=== PATIENT | female | born 1985 | race Caucasian/White ===

== ENCOUNTER 2017-07-23 18:04 | Emergency (ER) | payer BC ==
[2017-07-23] MEDS ORDERED: Acyclovir* 200 MG CAP PO ONE (18:24)
[2017-07-23 18:29] VITALS: BP 117/70
[2017-07-23] MEDS ORDERED: oxyCODONE/Acetamin 5/325 MG* TAB PO ONE (18:29)
--- NOTE | 2017-07-23 18:32 | UC ---
Skin Complaint HPI - HPI Summary HPI Summary: red erythemic rash, starting to blister, has been present for 2 days. - History of Current Complaint Chief Complaint: UCSkin Time Seen by Provider: 07/23/17 18:19 Stated Complaint: SKIN COMPLAINT Hx Obtained From: Patient Hx Last Menstrual Period: 07/08/17 ?: No Onset/Duration: Sudden Onset, Lasting Days Skin Exposure Onset/Duration: Days Ago Timing: Constant Onset Severity: Mild Current Severity: Moderate - Allergy/Home Medications Allergies/Adverse Reactions: Allergies Allergy/AdvReac Type Severity Reaction Status Date / Time Amoxicillin Allergy Mild Vomiting Verified 07/23/17 18:14 Penicillins Allergy Vomiting Verified 07/23/17 18:14 Review of Systems Constitutional: Negative Skin: Rash Eyes: Negative ENT: Negative Respiratory: Negative Cardiovascular: Negative Gastrointestinal: Negative Genitourinary: Negative Motor: Negative Neurovascular: Negative Musculoskeletal: Negative Neurological: Negative Psychological: Negative Is Patient Immunocompromised?: No All Other Systems Reviewed And Are Negative: Yes PMH/Surg Hx/FS Hx/Imm Hx Previously Healthy: Yes - Surgical History Surgical History: Yes Surgery Procedure, Year, and Place: LEFT KNEE SURGERY 2002. CORRECTIVE LAZER EYE SURGERY 2014 - Family History Known Family History: Negative: Hypertension - Social History Alcohol Use: Occasionally Substance Use Type: None Smoking Status (MU): Never Smoked Tobacco - Immunization History Most Recent Tetanus Shot: unknown Physical Exam Triage Information Reviewed: Yes Appearance: Well-Appearing, Well-Nourished, Pain Distress Vital Signs: Initial Vital Signs Temp 98.0 F 07/23/17 18:11 Pulse 66 07/23/17 18:11 Resp 14 07/23/17 18:11 BP 117/70 07/23/17 18:11 Pulse Ox 100 07/23/17 18:11 Vital Signs Reviewed: Yes Eye Exam: Normal ENT Exam: Normal Dental Exam: Normal Neck exam: Normal Respiratory Exam: Normal Respiratory: Positive: Chest non-tender, Lungs clear, Normal breath sounds Cardiovascular Exam: Normal Cardiovascular: Positive: RRR, No Murmur, Pulses Normal Abdominal Exam: Normal Abdomen Description: Positive: Nontender, No Organomegaly, Soft Bowel Sounds: Positive: Present Musculoskeletal Exam: Normal Neurological Exam: Normal Neurological: Positive: Alert, Muscle Tone Normal Psychological Exam: Normal Skin: Positive: rashes - rash wraps around the left rib cage, shingles in appearecne Course/Dx - Course Course Of Treatment: hx obtained, exam performed, meds reviewed, treated for shingles - Differential Diagnoses - Skin Complaint Differential Diagnoses: Contact Dermatitis, Varicella Zoster - Diagnoses Provider Diagnoses: shingles Discharge - Discharge Plan Condition: Stable Disposition: HOME Prescriptions: ValACYclovir (*) [Valtrex 1 GM(*)] 1 gm PO TID #21 tab Patient Education Materials: Shingles (ED) Referrals: Cora Rbob MD [Primary Care Provider] - Additional Instructions: 1. keep the area cool and dry 2. take the medication as prescribed. 3. follow up with any worsening symptoms.
[2017-07-23] MEDS ORDERED: HYDROcodone/ACETAMIN 5-325 MG* 1 TAB PO ONE (18:34)
== END 2017-07-23 18:46 | disposition home or self-care (01) ==
LOC: UCCORT 18:04
DX: B02.9 Zoster without complications (principal); Z88.0 Allergy status to penicillin
CPT/HCPCS: 99212; A9270-GY; G0463

== ENCOUNTER 2018-04-18 03:19 | Inpatient (IN) | payer OTHER ==
[2018-04-18] MEDS ORDERED: Promethazine INJ(RESTRICTED)* 25 MG/ML 1 ML VIAL IV PRN (04:37)
--- NOTE | 2018-04-18 04:44 | HP ---
General Information - Reason for Visit Patient with a twin at 33 4/7 weeks EGA, Presents with complaints of ruptured membranes at 2 am today. - General Information Maternal Age: 33 Grav: 1 Para: 0 SAB: 0 IEA: 0 Estimated Due Date: 06/02/18 Determined By: LMP - confirmed with early ultrasound Gestational Age in Weeks/Days: 33 4/7 Maternal Blood Type and Rh: O Positive - Results this Serology/RPR Result: Non-Reactive Rubella Result: Immune HBsAg Result: Negative HIV Result: Negative Past Medical History Delivery History: See Records - Primigravida Pertinent Past Medical History: See Records Pertinent Past Surgical History: See Records Pertinent Family History: See Records - Antepartal Records Antepartal Records: Reviewed, Complicated by: - Twin dichorionic/diamniotic, gestational diabetes A1 Review of Systems Constitutional: Comfortable CV Complaint: No Respiratory: Shortness of Breath: No Gastrointestinal: No Nausea/Vomiting, Normal Bowel Movement Genitourinary: Leaking Fluid, No Dysuria, No Bleeding Musculoskeletal: No Complaint, No Epigastric Pain Neurological: No Headache, No Visual Changes Movement: Normal Exam Allergies/Adverse Reactions: Allergies MS Penicillins [Penicillins] Allergy (Mild, Verified 04/13/18 12:01) Vomiting MS Amoxicillin [Amoxicillin] Adverse Reaction (Mild, Verified 04/18/18 04:43) Vomiting Temp 97.8 BP 137/85 P 91 RR 18 Pox 98 % RA - Measurements Height: 5 ft 8 in Weight: 185 lb Weight in lbs: 185.181947 Body Mass Index (BMI): 28.1 Pre- Weight: 155 lb Weight Gained This : 30 lbs and 0 ozs - Exam Breast: Breast Exam Deferred CVA: No CVA Tenderness Extremities: No Edema Heart: Normal Rhythm/Heart Sounds HEENT: No Significant Findings Lungs: Clear Bilaterally Rectal: Rectal Exam Deferred Reflexes: DTR 2+ Thyroid: No Thyromegaly - Abdominal Exam Abdomen Exam: Non-Tender - Ultrasound/Biophysical Profile Ultrasound Status: Not Done Biophysical Profile: Normal Reactive NST Targeted Exam Findings See L&D Outpatient Visit Provider Note for Findings: N/A Cervical Exam: 4cm Effacement: 80% Station: 0 Presenting Part: Vertex - Vertex/vertex Membrane Status: SROM - clear fluid, grossly ruptured. Amniotic Fluid Evaluation: Gross Rupture, Clear Bleeding/Discharge: None EFM Findings - External Monitor Findings Baseline Heart Rate: 140 External Monitor Findings: Accelerations Present - Baby A 140's, Baby B 130's both Category 1 tracing. Contractions: Regular, Mild, < 45 Seconds Assessment/Plan - Assessment Twin vertex/vertex presentation gross ruptured membranes in labor at 33 4/7 weeks. - Obstetrical Risk Factors Obstetrical Risk Factors: GBS Unknown, - Twins - Plan Plan: IV Hydration, Antibiotic Prophylaxis, Admit - Anticipate Vaginal Delivery - Date/Time of Admission Date of Admission: 04/18/18 Time of Admission: 04:50
[2018-04-18 04:45] LABS: ABS Basophils 0 10^3/ul (0-0.2); ABS Eosinophils 0.2 10^3/ul (0-0.6); ABS Lymphocytes 2.3 10^3/ul (1.0-4.8); ABS Monocytes 0.7 10^3/ul (0-0.8); ABS Neutrophils 7.6 10^3/ul (1.5-7.7); ABS Nucleated RBC 0 10^3/ul; Eosinophil % 2.3 % (0-6); Hematocrit 40 % (35-47); Hemoglobin 13.4 g/dl (12.0-16.0); Lymphocyte % 20.8 % (25-47); Mean Corpuscular HGB Conc 34 g/dl (31-36); Mean Corpuscular Hemoglobin 26 pg (27-31); Mean Corpuscular Volume 77 fL (80-97); Mean Platelet Volume 9.3 um3 (7.4-10.4); Nucleated Red Blood Cells % 0.1; Platelet Count 180 10^3/ul (150-450); Red Blood Count 5.14 10^6/ul (4.00-5.40); Red Cell Distribution Width 14 % (10.5-15); White Blood Count 10.9 10^3/ul (3.5-10.8)
[2018-04-18] MEDS ORDERED: Ampicillin IV* 2 GM in NS 0.9% 100 ML* 100 ML IVPB SCH (05:00)
[2018-04-18] MEDS ORDERED: Nalbuphine* 10 MG/ML 1 ML VIAL IV PRN (05:25)
[2018-04-18] MEDS ORDERED: Nalbuphine* 10 MG/ML 1 ML VIAL ONE (05:38)
[2018-04-18] MEDS ORDERED: OBEPIDURAL* 250 ML EPIDURAL ONE (08:36)
[2018-04-18] MEDS ORDERED: Phenylephrine IV* 40 MCG/ML 10 ML SYRINGE ONE (09:18)
[2018-04-18] MEDS ORDERED: Phenylephrine IV* 40 MCG/ML 10 ML SYRINGE IV PUSH PRN ×2 (09:31)
[2018-04-18] MEDS ORDERED: Sodium Citrate/Citric Acid* 15 ML UDC PO PRN (09:31)
[2018-04-18] MEDS ORDERED: OBEPIDURAL* 250 ML EPIDURAL SCH (10:00)
[2018-04-18 10:12] LABS: Urine Appearance Clear; Urine Blood 1+ (Negative); Urine Color Yellow; Urine Ketones 1+ (Negative); Urine Protein Negative (Negative); Urine Red Blood Cell Trace(0-2/hpf) (Absent); Urine Specific Gravity 1.013 (1.010-1.030); Urine Urobilinogen Negative (Negative); Urine White Blood Cell Absent (Absent)
--- NOTE | 2018-04-18 10:21 | PN ---
Progress Note - Progress Note Date of Service: 04/18/18 SOAP: Subjective: [Patient in labor s/p epidural with good pain relief.] Objective: [ heart tones Cat 1, contractions q2-3 minutes spontaneous. Cervix 7-8cm dilated/80-90% effaced? 0 station] Assessment: [Twin PROM and PTL] Plan: [Continue current care, expect .]
[2018-04-18] MEDS ORDERED: Lidocaine 2% PF* 10 ML AMP ONE (11:43)
[2018-04-18] MEDS ORDERED: Ondansetron INJ* 2 MG/ML VIAL IV PRN (13:43)
[2018-04-18] MEDS ORDERED: Acetaminophen TAB* 325 MG PO PRN (13:43)
[2018-04-18] MEDS ORDERED: OXYTOCIN* 10 UNITS/ML 1 ML VIAL ONE (13:48)
[2018-04-18] MEDS ORDERED: Dibucaine 1% 28.35 GM TUBE PR PRN (14:05)
[2018-04-18] MEDS ORDERED: Glycerin ADULT SUPP PR PRN (14:05)
[2018-04-18] MEDS ORDERED: Witch Hazel PAD* JAR TOPICAL PRN (14:05)
--- NOTE | 2018-04-18 14:13 | PROCNOTE ---
[facility] OB: Delivery Note - Delivery A Date of : 04/18/18 [place] Sex: Male Weight at : 4 lb Score 1 Minute: 9 Score 5 Minutes: 9 Gestational Age in Weeks and Days at Delivery: 33 Weeks and 4 Days Delivery Method: Spontaneous Vaginal Labor: Spontaneous Amniotic Fluid: Clear Estimated Blood Loss: 0 Anesthesia/Analgesia: CEI for Labor Delivered By: Naren Wing - Nursery Level of Nursery: NICU - Twin A delivery - Perineum Perineal Repair: None - Events Delivery Events of Note: Partial Course of Antibiotics
--- NOTE | 2018-04-18 14:16 | PROCNOTE ---
[facility] OB: Delivery Note - Delivery A Date of : 04/18/18 Gestational Age in Weeks and Days at Delivery: 33 Weeks and 4 Days Delivery Method: Spontaneous Vaginal Labor: Spontaneous Amniotic Fluid: Clear Estimated Blood Loss: 0 Anesthesia/Analgesia: CEI for Labor Delivered By: Nraen Wing B Date of : 04/18/18 [place] Sex: Male Weight at : 4 lb 9 oz Score 1 Minute: 8 Score 5 Minutes: 8 Gestational Age in Weeks and Days at Delivery: 33 Weeks and 4 Days Delivery Method: Spontaneous Vaginal Labor: Spontaneous Amniotic Fluid: Clear Anesthesia/Analgesia: CEI for Labor Delivered By: Naren Wing - Nursery Level of Nursery: NICU - Twin B delivery - Perineum Perineal Injury: Midline Episiotomy Perineal Repair: By Delivering Practioner - Events Delivery Events of Note: Partial Course of Antibiotics, Post- Bleeding - Meds Given - cytotec 800mcg ME x 1 dose - Risk for Falls Delivered OB Patient- Risk for Falls: Heavy Bleeding - 700cc Fall Risk: Patient is at High Risk for Falls
[2018-04-18] MEDS: Ibuprofen TAB* 600 MG PO PRN ×2 (15:32→21:55)
[2018-04-18] MEDS ORDERED: Misoprostol TAB* 200 MCG ONE (15:55)
[2018-04-18] MEDS ORDERED: Simethicone TAB* 80 MG TAB.CHEW PO SCH (17:30)
[2018-04-18] MEDS: Docusate CAP* 100 MG PO SCH (21:55)
[2018-04-19] MEDS: Acetaminophen TAB* 325 MG PO PRN ×2 (00:04→18:34)
[2018-04-19 06:20] LABS: ABS Basophils 0.1 10^3/ul (0-0.2); ABS Eosinophils 0.2 10^3/ul (0-0.6); ABS Lymphocytes 2.4 10^3/ul (1.0-4.8); ABS Monocytes 1.3 10^3/ul (0-0.8); ABS Neutrophils 12.1 10^3/ul (1.5-7.7); ABS Nucleated RBC 0 10^3/ul; Hematocrit 36 % (35-47); Hemoglobin 11.8 g/dl (12.0-16.0); Lymphocyte % 15.3 % (25-47); Mean Corpuscular HGB Conc 33 g/dl (31-36); Mean Corpuscular Hemoglobin 26 pg (27-31); Mean Corpuscular Volume 79 fL (80-97); Nucleated Red Blood Cells % 0.1; Platelet Count 178 10^3/ul (150-450); Red Blood Count 4.53 10^6/ul (4.00-5.40); Red Cell Distribution Width 14 % (10.5-15)
[2018-04-19] MEDS ORDERED: Ferrous Gluconate TAB* 324 MG TAB PO SCH (09:00)
[2018-04-19] MEDS: Docusate CAP* 100 MG PO SCH ×2 (09:31→19:48)
[2018-04-20 07:30] VITALS: BP 121/73
[2018-04-20] MEDS: Docusate CAP* 100 MG PO SCH ×2 (08:56→15:03)
[2018-04-20] MEDS: Ibuprofen TAB* 600 MG PO PRN (16:52)
== END 2018-04-20 18:00 | disposition home or self-care (01) | DRG 774 ==
LOC: MCHOBOUT 03:19 → MCHOB 04:03
PROVIDERS: ADMIT Obstetrics & Gynecology; ATTEND Obstetrics & Gynecology
PROC: 10E0XZZ Delivery of Products of Conception, External Approach (ICD-10-PCS; principal; 2018-04-18)
PROC: 10907ZC Drainage of Amniotic Fluid, Therapeutic from Products of Conception, Via Natural or Artificial Opening (ICD-10-PCS; 2018-04-18)
PROC: 4A1HXCZ Monitoring of Products of Conception, Cardiac Rate, External Approach (ICD-10-PCS; 2018-04-18)
PROC: 0W8NXZZ Division of Female Perineum, External Approach (ICD-10-PCS; 2018-04-18)
DX: O60.14X2 Preterm labor third trimester with preterm delivery third trimester, fetus 2 (principal); O72.1 Other immediate postpartum hemorrhage; O60.14X1 Preterm labor third trimester with preterm delivery third trimester, fetus 1; Z37.2 Twins, both liveborn; Z3A.33 33 weeks gestation of pregnancy; O42.013 Preterm premature rupture of membranes, onset of labor within 24 hours of rupture, third trimester; O24.420 Gestational diabetes mellitus in childbirth, diet controlled; O34.13 Maternal care for benign tumor of corpus uteri, third trimester; D25.9 Leiomyoma of uterus, unspecified; O30.043 Twin pregnancy, dichorionic/diamniotic, third trimester; Z88.0 Allergy status to penicillin
CPT/HCPCS: 36415; 81003; 81015; 85025; 86850; 86900; 86901; 87070; 87077; 87186; A9270-GY; J0290; J2001; J2300; J2550; J2590

== ENCOUNTER 2018-12-01 13:56 | Emergency (ER) | payer OTHER ==
--- NOTE | 2018-12-01 14:43 | UC ---
Respiratory Complaint HPI - HPI Summary HPI Summary: breast feeding parent of twin 8 mth olds----sudden onset of congestion chills sore throat yesterday that has now resolved no fevers--her and the boys did get a flu vaccine one of the children have similar symptoms - History of Current Complaint Chief Complaint: UCRespiratory Stated Complaint: RESP ISSUE Time Seen by Provider: 12/01/18 14:34 Hx Obtained From: Patient Hx Last Menstrual Period: 07/08/17 ?: No Onset/Duration: Sudden Onset, Lasting Days - 1 Timing: Constant Severity Initially: Mild Severity Currently: Mild Character: Cough: Nonproductive Aggravating Factors: Nothing Alleviating Factors: Nothing Associated Signs And Symptoms: Positive: URI, Nasal Congestion - Allergies/Home Medications Allergies/Adverse Reactions: Allergies Allergy/AdvReac Type Severity Reaction Status Date / Time amoxicillin Allergy Mild See Comment Verified 04/18/18 05:28 Penicillins Allergy Mild See Comment Verified 04/18/18 05:31 PMH/Surg Hx/FS Hx/Imm Hx Previously Healthy: Yes - Surgical History Surgical History: Yes Surgery Procedure, Year, and Place: LEFT KNEE SURGERY 2002. CORRECTIVE LAZER EYE SURGERY 2014 - Family History Known Family History: Negative: Hypertension - Social History Occupation: Employed Full-time Lives: With Family Alcohol Use: None Substance Use Type: None Smoking Status (MU): Never Smoked Tobacco Have You Smoked in the Last Year: No - Immunization History Most Recent Influenza Vaccination: 2016 Most Recent Tetanus Shot: unknown Most Recent Pneumonia Vaccination: never Review of Systems All Other Systems Reviewed And Are Negative: Yes Constitutional: Positive: Negative Skin: Positive: Negative Eyes: Positive: Negative ENT: Positive: Sore Throat, Nasal Discharge, Sinus Congestion Respiratory: Positive: Cough Cardiovascular: Positive: Negative Gastrointestinal: Positive: Negative Genitourinary: Positive: Negative Motor: Positive: Negative Neurovascular: Positive: Negative Musculoskeletal: Positive: Negative Neurological: Positive: Negative Psychological: Positive: Negative Is Patient Immunocompromised?: No Physical Exam Triage Information Reviewed: Yes Appearance: Well-Appearing, No Pain Distress, Well-Nourished Vital Signs Reviewed: Yes Eye Exam: Normal Eyes: Positive: Conjunctiva Clear ENT Exam: Normal ENT: Positive: Normal ENT inspection, Hearing grossly normal, Pharynx normal, Nasal congestion, Nasal drainage, TMs normal, Sinus tenderness, Uvula midline. Negative: Trismus, Muffled voice, Hoarse voice, Dental tenderness Dental Exam: Normal Neck exam: Normal Neck: Positive: Supple, Nontender, No Lymphadenopathy Respiratory Exam: Normal Respiratory: Positive: Chest non-tender, Lungs clear, Normal breath sounds, No respiratory distress Cardiovascular Exam: Normal Cardiovascular: Positive: RRR, No Murmur, Pulses Normal, Brisk Capillary Refill Musculoskeletal Exam: Normal Musculoskeletal: Positive: Strength Intact, ROM Intact, No Edema Neurological Exam: Normal Neurological: Positive: Alert, Muscle Tone Normal Psychological Exam: Normal Skin Exam: Normal Respiratory Course/Dx - Course Course Of Treatment: influenza testing negative, increase fluids, tylenol, ibuprofen for pain nasal saline for nose and sinus congestion increase fluids follow with pcp prn - Differential Dx/Diagnosis Provider Diagnosis: URI (upper respiratory infection) Discharge - Sign-Out/Discharge Documenting (check all that apply): Patient Departure All imaging exams completed and their final reports reviewed: No Studies - Discharge Plan Condition: Stable Disposition: HOME Patient Education Materials: Sodium Chloride (Into the nose), Upper Respiratory Infection (ED), Viral Syndrome (ED) Referrals: Cora Robb MD [Primary Care Provider] - If Needed - Billing Disposition and Condition Condition: STABLE Disposition: Home
[2018-12-01 14:44] VITALS: BP 112/65
[2018-12-01 15:10] LABS: Influenza A Molecular NEGATIVE (Negative); Influenza B Molecular NEGATIVE (Negative)
== END 2018-12-01 15:30 | disposition home or self-care (01) ==
LOC: UCEAST 13:56
DX: J06.9 Acute upper respiratory infection, unspecified (principal); Z88.0 Allergy status to penicillin
CPT/HCPCS: 99211; G0463

== ENCOUNTER 2022-06-30 09:00 | Inpatient (IN) ==
[2022-06-30] MEDS ORDERED: Buffered Lidocaine 1% SYRIN 1 ml INTRADERM ONE (09:56)
[2022-06-30] MEDS ORDERED: Lactated Ringers 1000 ml BAG 1,000 ML IV ONE ×2 (09:56→15:20)
[2022-06-30] MEDS ORDERED: Promethazine INJ(RESTRICTED) 25 MG/ML 1 ml VIAL IV PRN (09:56)
[2022-06-30] MEDS ORDERED: Nalbuphine 10 MG/ML 1 ML VIAL IV PRN (09:56)
[2022-06-30] MEDS ORDERED: Lactated Ringers 1000 ml BAG 1,000 ML IV SCH ×3 (10:00→18:00)
[2022-06-30] MEDS ORDERED: ceFAZolin 2 GM in NS PREMIX 2 GM/100 ML BAG IVPB ONE (10:11)
[2022-06-30 10:57] LABS: ABS Basophils 0.1 10^3/ul (0-0.2); ABS Eosinophils 0.3 10^3/ul (0-0.6); ABS Lymphocytes 1.8 10^3/ul (1.0-4.8); ABS Monocytes 1.2 10^3/ul (0-0.8); ABS Neutrophils 9.2 10^3/ul (1.5-7.7); Eosinophil % 2.4 %; Hematocrit 39 % (35-47); Hemoglobin 12.9 g/dL (12.0-16.0); Lymphocyte % 14.5 %; Mean Corpuscular HGB Conc 33 g/dL (31-36); Mean Corpuscular Hemoglobin 25 pg (27-31); Mean Corpuscular Volume 77 fL (80-97); Mean Platelet Volume 8.9 fL (7.4-10.4); Nucleated Red Blood Cells % 0.2; Platelet Count 244 10^3/uL (150-450); Red Blood Count 5.07 10^6 /uL (3.70-4.87); Red Cell Distribution Width 14 % (10-15); White Blood Count 12.7 10^3/uL (3.5-10.8)
[2022-06-30 11:29] LABS: Urine Benzodiazepine Screen None Detected (None Detect); Urine Cannabinoids Screen None Detected (None Detect); Urine Opiates Screen None Detected (None Detect)
[2022-06-30] MEDS ORDERED: Oxytocin in LR 20,000 MILLI.UNIT/1,000 ML BAG IV SCH (11:30)
[2022-06-30] MEDS ORDERED: EPINEPHrine SULFITE FREE 1 MG/ML ONE (14:22)
[2022-06-30] MEDS ORDERED: Lidocaine 1% VIAL 10 MG/ML VIAL 30 ML ONE ×2 (14:23→17:52)
[2022-06-30] MEDS ORDERED: OBEPIDURAL (200 ML) 200 ML EPIDURAL ONE (14:23)
[2022-06-30] MEDS ORDERED: Phenylephrine 40 mcg/mL 10mL (400mcg) SYRINGE IV PUSH PRN (15:20)
[2022-06-30] MEDS ORDERED: Sodium Citrate/Citric Acid LIQ 15 ML UDC PO PRN (15:20)
[2022-06-30] MEDS ORDERED: OBEPIDURAL (200 ML) 200 ML EPIDURAL SCH (16:00)
[2022-06-30 16:30] LABS: Urine Appearance Clear; Urine Bilirubin Negative (Negative); Urine Blood Negative (Negative); Urine Color Straw; Urine Glucose Negative (Negative); Urine Ketones 1+ (Negative); Urine Nitrite Negative (Negative); Urine Protein Negative (Negative); Urine Specific Gravity 1.011 (1.002-1.030); Urine Urobilinogen Negative (Negative)
[2022-06-30] MEDS ORDERED: Witch Hazel PAD JAR TOPICAL PRN (17:58)
[2022-06-30] MEDS ORDERED: Dibucaine 1% OINT 28.35 GM TUBE PR PRN (17:58)
[2022-06-30] MEDS ORDERED: Glycerin ADULT 2.4 gm SUPP PR PRN (17:58)
[2022-06-30] MEDS: ceFAZolin 1 GM ADVAN 1 GM in NS 0.9% 50 ML 50 ML IVPB SCH (18:37)
[2022-07-01 06:30] LABS: Hematocrit 37 % (35-47); Mean Corpuscular HGB Conc 32 g/dL (31-36); Mean Corpuscular Hemoglobin 25 pg (27-31); Mean Corpuscular Volume 78 fL (80-97); Mean Platelet Volume 8.7 fL (7.4-10.4); Platelet Count 222 10^3/uL (150-450); Red Cell Distribution Width 14 % (10-15); White Blood Count 15.5 10^3/uL (3.5-10.8)
[2022-07-01 06:46] LABS: ABS Eosinophils 0.2 10^3/ul (0-0.6); ABS Lymphocytes 1.7 10^3/ul (1.0-4.8); ABS Monocytes 1.2 10^3/ul (0-0.8)
[2022-07-01] MEDS: ceFAZolin 1 GM ADVAN 1 GM in NS 0.9% 50 ML 50 ML IVPB SCH (07:25)
[2022-07-02 08:52] VITALS: BP 104/63
== END 2022-07-02 17:20 | disposition home or self-care (01) | DRG 560 ==
LOC: MCHOBOUT 09:00 → MCHOB 10:30
PROVIDERS: ADMIT Obstetrics & Gynecology; ATTEND Obstetrics & Gynecology

== ENCOUNTER 2023-10-27 20:49 | Inpatient (IN) ==
[2023-10-27] MEDS ORDERED: Prochlorperazine 5 mg/ml 2 ml VIAL (10 mg) IV PRN (21:17)
[2023-10-27] MEDS ORDERED: Buffered Lidocaine 1% SYRIN 1 ml INTRADERM ONE (21:17)
[2023-10-27] MEDS ORDERED: Lidocaine 1% VIAL 10 MG/ML 30 ML VIAL INJ PRN (21:17)
[2023-10-27] MEDS: Penicillin G Potassium IV 5,000,000 UNITS in NS 0.9% 100 ml BAG 100 ML IVPB ONE (21:31)
[2023-10-27] MEDS: Lactated Ringers 1000 ml BAG 1,000 ML IV ONE (21:32)
[2023-10-27 21:49] LABS: ABS Eosinophils 0.1 10^3/uL (0.0-0.5); ABS Lymphocytes 0.9 10^3/uL (1.0-4.8); ABS Monocytes 0.8 10^3/uL (0.0-0.9); ABS Neutrophils 9.7 10^3/uL (1.5-7.6); ABS Nucleated RBC 0.01 10^3/ul; Eosinophil % 0.5 %; Hematocrit 38.4 % (35-45); Hemoglobin 12.8 g/dL (11.5-14.3); Lymphocyte % 7.7 %; Mean Corpuscular Hemoglobin 25.3 pg (27-33); Mean Corpuscular Hgb Conc 33.3 g/dL (31-36); Mean Corpuscular Volume 75.9 fL (80-97); Mean Platelet Volume 8.3 fL (7.5-11.2); Nucleated Red Blood Cells % 0.1 %/100WBC (0.0-0.8); Platelet Count 284 10^3/uL (150-450); Red Blood Count 5.06 10^6/uL (3.63-4.92); White Blood Count 11.4 10^3/uL (3.8-11.8)
[2023-10-27] MEDS ORDERED: Lidocaine 1.5% EPI 1:200,000 30 ML SDV ONE (21:49)
[2023-10-27] MEDS ORDERED: Lactated Ringers 1000 ml BAG 1,000 ML IV SCH (22:00)
[2023-10-27] MEDS ORDERED: fentaNYL 100 mcg/2 ml 50 MCG/ML VIAL ONE (22:05)
[2023-10-27 22:18] LABS: Urine Benzodiazepine Screen None Detected (None Detect); Urine Opiates Screen None Detected (None Detect)
[2023-10-27] MEDS: OBEPIDURAL (200 ML) 200 ML EPIDURAL ONE (22:35)
[2023-10-27] MEDS ORDERED: Lactated Ringers 1000 ml BAG 1,000 ML IV ONE (22:50)
[2023-10-27] MEDS ORDERED: Sodium Citrate/Citric Acid LIQ 15 ML UDC PO PRN (22:50)
[2023-10-27] MEDS ORDERED: Phenylephrine 40 mcg/mL 10mL (400mcg) SYRINGE IV PUSH PRN ×2 (22:50)
[2023-10-27] MEDS ORDERED: OBEPIDURAL (200 ML) 200 ML EPIDURAL SCH (23:00)
[2023-10-28] MEDS ORDERED: Oxytocin 10 UNITS/ML 1 ML VIAL IM PRN (00:24)
[2023-10-28] MEDS ORDERED: Witch Hazel PAD JAR TOPICAL PRN (00:24)
[2023-10-28] MEDS ORDERED: Glycerin ADULT 2.4 gm SUPP PR PRN (00:24)
[2023-10-28] MEDS ORDERED: Lactated Ringers 1000 ml BAG 1,000 ML IV SCH (01:00)
[2023-10-28] MEDS ORDERED: Penicillin G Potassium IV 3,000,000 UNITS in NS 0.9% 100 ml BAG 100 ML IVPB SCH (01:30)
[2023-10-28 07:27] VITALS: BP 108/60
[2023-10-28] MEDS: Dibucaine 1% OINT 28.35 GM TUBE PR PRN (08:11)
== END 2023-10-28 08:45 | disposition home or self-care (01) | DRG 560 ==
LOC: MCHOBOUT 20:49 → MCHOB 21:15
PROVIDERS: ADMIT Registered Nurse; ATTEND Registered Nurse